=== PATIENT | female | born 1950 | race Caucasian/White ===

== ENCOUNTER 2022-08-31 08:25 | Outpatient (CLI) | payer MEDICARE, OTHER, SELFPAY ==
--- NOTE | ~2022-08-31 | NM_ITS ---
EXAMINATION: NM miguelina stress w perfusion DATE: 08/31/2022 12:08 INDICATION: Paroxysmal atrial fibrillation. TECHNIQUE: Rest images were obtained following intravenous administration of 11.3 mCi Tc99m tetrofosm in (Myoview). The patient was infused intravenously with Lexiscan (regadenoson). Then, 35.2 mCi Tc99m tetrofosmin (Myoview) was administered intravenously, and stress images were obtained. Data was seda nstructed into short axis and horizontal and vertical long axis SPECT images. Gated SPECT images were also obtained. COMPARISON: None. FINDINGS: There is no definite reversible or fixed perfusion abnormality to suggest ischemia or infar ction. There is no segmental wall motion abnormality. Left ventricular ejection fraction measures > 70%. IMPRESSION: 1. No definite ischemia or infarct. 2. Normal left ventricular ejection fraction measuring >70%. Reviewed, dictated and finalized at location A. AL SITTER
--- NOTE | 2022-08-31 08:32 | ECHO_ITS ---
Patient Info Name: Clotilde Brumfield Age: 72 years : 1950 Gender: Female Ht: 63 in Wt: 180 lbs BSA: 1.94 m2 HR: 60 bpm BP: 176 / 81 mmHg Technical Quality: Fair Exam Date: 08/31/2022 10:03 AM Exam Location: [facility] Patient Status: Outpatient Admit Date: 08/31/2022 Staff Ordering Physician: David Andino DO Radio Time Salesperson: Negin Stone RCS Attending Provider: David Andino DO Referring Physician: Sina HARRINGTON; Exam Type: CA echo doppler color flow Study Info Indications I48.0 - Paroxysmal atrial fibrillation Complete two-dimensional, color flow and Doppler transthoracic echocardiogram is performed. Summary 1. Complete two-dimensional, color flow and Doppler transthoracic echocardiogram is performed. 2. Left ventricular chamber dimension is normal. 3. Left ventricular systolic function is normal, estimated at 65-70%. 4. The left ventricular diastolic function is grade II diastolic dysfunction. 5. E/e' 12 is mildly elevated. 6. Left atrial chamber dimension is mildly enlarged. 7. There is mild aortic valve regurgitation. 8. There is mild tricuspid valve regurgitation. 9. No pulmonary hypertension, estimated pulmonary arterial systolic pressure is 39 mmHg. Left Ventricle E/e' 12 is mildly elevated. Left ventricular chamber dimension is normal. Left ventricular systolic function is normal, estimated at 65-70%. The left ventricular diastolic function is grade II diastolic dysfunction. Right Ventricle Right ventricular chamber dimension is normal. Right ventricular systolic function is normal. Left Atria Left atrial chamber dimension is mildly enlarged. Right Atria Right atrial chamber dimension is normal. Aortic Valve The aortic valve is trileaflet. There is no aortic valve stenosis. There is mild aortic valve regurgitation. Pulmonic Valve There is no pulmonic regurgitation. Mitral Valve There is no mitral valve stenosis. There is no mitral valve regurgitation. Tricuspid Valve There is mild tricuspid valve regurgitation. No pulmonary hypertension, estimated pulmonary arterial systolic pressure is 39 mmHg. Pericardium/Pleural There is no pericardial effusion. Inferior Vena Cava Normal inferior vena cava with >50% collapse upon inspiration consistent with normal right atrial pressure, 5 mmHg. Aorta The aortic root size at the sinus of Valsalva is normal. Left Ventricular Outflow Tract Name Value Normal LVOT 2D LVOT Diameter 2.0 cm LVOT Doppler LVOT Peak Gradient 6 mmHg LVOT Mean Gradient 3 mmHg LVOT VTI 26 cm LVOT VTI/AV VTI Ratio 0.7 LVOT Stroke Volume 82 ml Pulmonic Valve Name Value Normal PV Doppler PV Peak Gradient 2 mmHg Mitral Keturah
--- NOTE | 2022-08-31 08:33 | EST_ITS ---
Patient Info Name: Clotilde Brumfield Age: 72 years : 1950 Gender: Female Ht: 63 in Wt: 180 lbs BSA: 1.94 m2 HR: 58 bpm BP: 161 / 85 mmHg Heart Rhythm: Sinus Rhythm Exam Date: 08/31/2022 10:55 AM Exam Location: [facility] Stress Patient Status: Outpatient Admit Date: 08/31/2022 Staff Ordering Physician: David Andino DO Attending Provider: David Andino DO Exercise Technologist: Rubina Lee CT Exercise Physician: David Andino DO Exam Type: CA stress miguelina w NM Study Info Indications I48.0 - Paroxysmal atrial fibrillation A regadenoson stress test was performed. Summary 1. 1. Negative lexiscan stress test for ischemic ST changes by ECG criteria. 2. 2. Baseline hypertension. 3. 3. Nuclear scan to follow and will be reported separately. Please correlate with it. 4. 4. Patient informed of the above results. Protocol: Lexiscan Stress ECG Details Stage: REST Duration (min): 2 min : 2 sec HR (bpm): 59 SBP (mmHg): 161 DBP (mmHg): 85 Stage: REST Duration (min): 7 min : 0 sec HR (bpm): 62 SBP (mmHg): 161 DBP (mmHg): 85 Stage: STAGE 1 Duration (min): 0 min : 59 sec HR (bpm): 98 SBP (mmHg): 161 DBP (mmHg): 85 Stage: RECOVERY Duration (min): 1 min : 0 sec HR (bpm): 97 SBP (mmHg): 134 DBP (mmHg): 79 Stage: RECOVERY Duration (min): 2 min : 0 sec HR (bpm): 98 SBP (mmHg): 134 DBP (mmHg): 79 Stage: RECOVERY Duration (min): 3 min : 0 sec HR (bpm): 88 SBP (mmHg): 166 DBP (mmHg): 81 Stage: RECOVERY Duration (min): 3 min : 46 sec HR (bpm): 90 SBP (mmHg): 166 DBP (mmHg): 81 Rest HR: 62 bpm Peak HR: 109 bpm Rest Sys BP: 161 mmHg Peak Sys BP: 166 mmHg Max Pred HR: 149 bpm % Max Pred HR: 73 % Target HR: 127 bpm Max RPP: 18,094 bpm*mmHg Termination Reason: Completed protocol Cardiac Symptoms: Shortness of breath Total Time: 1 min : 0 sec Rest Phipps BP: 85 mmHg Peak Phipps BP: 81 mmHg Total Dose: 0.4 mg Resting ECG Sinus rhythm. Stress ECG No ST changes. Arrhythmias None. Report Signatures
== END 2022-08-31 08:26 | disposition home or self-care (01) ==
LOC: ANHCARD 08:29
PROVIDERS: PCP Physician Assistant; Visit Provider Internal Medicine Cardiovascular Disease
DX: I48.0 Paroxysmal atrial fibrillation (principal); I10 Essential (primary) hypertension; I08.2 Rheumatic disorders of both aortic and tricuspid valves
CPT/HCPCS: 78452; 93017; 93306; A9502

== ENCOUNTER 2023-02-16 19:26 | Emergency (ER) | payer MEDICARE, OTHER, SELFPAY ==
[2023-02-16 19:28] VITALS: BP 173/83; PULSE 85; RESP 16; TEMP 36.8; O2SAT 100
--- NOTE | 2023-02-16 21:29 | ED.EYEPROB ---
HPI - Eye Problem General Chief complaint: Eye Problems Stated complaint: eye problems Time Seen by Provider: 02/16/23 20:47 Source: patient Mode of arrival: ambulatory Limitations: no limitations History of Present Illness HPI Narrative: This is a 72-year-old female who presents to the ED with chief complaint of right eye irritation and drainage x1 day. Reports yellow drainage from the eye. Reports irritation. Denies any vision changes or pain. Reports an associated cough and sore throat. She has some left eye irritation starting to develop. Denies fevers or chills. Related Data Home Medications Medication Instructions Recorded Confirmed rivaroxaban 20 mg tablet (Xarelto) 20 mg PO DAILY 02/12/23 02/12/23 Allergies Allergy/AdvReac Type Severity Reaction Status Date / Time No Known Allergies Allergy Verified 02/16/23 20:44 Review of Systems Review of Systems: CONSTITUTIONAL: Denies fever, chills, or sweats. EYES: Denies visual changes, redness, or discharge. ENT: See HPI CARDIOVASCULAR: Denies chest pain, palpitations, or edema. RESPIRATORY: See HPI GASTROINTESTINAL: Denies abdominal pain, nausea, vomiting, or diarrhea. GENITOURINARY: Denies dysuria or hematuria. SKIN: Denies rash or itching. MUSCULOSKELETAL: Denies back pain, joint pain, or myalgia. NEUROLOGIC: Denies headache, numbness, dizziness, or weakness. PSYCHIATRIC: Denies anxiety or depression. 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 HEAD: Normocephalic, atraumatic. EYES: PERRLA and EOMI. right-sided purulent drainage present. Injected conjunctive a bilaterally. Bilateral eyes have with active tearing.. ENT: Nares clear, no rhinorrhea or epistaxis. Mucous membranes moist. Oropharynx without tonsillar hypertrophy exudate or other lesions. Posterior oropharynx erythema present. NECK: Supple. No adenopathy or masses. CHEST: No respiratory distress. Clear to auscultation. No wheezes rales or rhonchi HEART: Regular rate and rhythm. No murmur heard. Normal peripheral pulses. ABDOMEN: Soft, nontender, nondistended, normal active bowel sounds. MSK: Normal range of motion. No edema. SKIN: Warm, dry, no rash. NEURO: Alert and oriented x3. No focal deficits. PSYCH: Normal mood and affect. Course Vital Signs Vital signs: Vital Signs Temperature 98.3 F 02/16/23 19:28 Pulse Rate 85 02/16/23 19:28 Respiratory Rate 16 02/16/23 19:28 Blood Pressure 173/83 H 02/16/23 19:28 Pulse Oximetry 100 02/16/23 19:28 Oxygen Delivery Room Air 02/16/23 19:28 Temperature 98.3 F 02/16/23 19:28 Pulse Rate 85 02/16/23 19:28 Respiratory Rate 16 02/16/23 19:28 Blood Pressure 173/83 H 02/16/23 19:28 Pulse Oximetry 100 02/16/23 19:28 Oxygen Delivery Room Air 02/16/23 19:28 MDM - Eye Problem MDM Narrative Medical decision making narrative: This is a 72-year-old female who presents to the ED with chief complaint of eye drainage x1 day. Associated sore throat cough. Vitals are stable. Exam shows purulent drain
[2023-02-16] MEDS: ERYTHROMYCIN OPHTH OINTMENT 1 GM TUBE 1 APPLIC EACH EYE (21:35)
[2023-02-16 22:11] LABS: Strep Group A RT-PCR NOT DETECTED (Negative)
[2023-02-16 22:22] LABS: Influenza A QL RT-PCR Negative (Negative); Influenza B QL RT-PCR Negative (Negative); RSV RNA, RT-PCR Negative (Negative); SARS-CoV-2 RNA PCR Negative (Negative)
== END 2023-02-16 22:53 | disposition home or self-care (01) ==
PROVIDERS: Emergency Provider Physician Assistant; PCP Family Medicine Adolescent Medicine
DX: H10.9 Unspecified conjunctivitis (principal); B34.9 Viral infection, unspecified; Z20.822 Contact with and (suspected) exposure to COVID-19; Z90.711 Acquired absence of uterus with remaining cervical stump; Z79.01 Long term (current) use of anticoagulants
CPT/HCPCS: 87637; 87651; 99283; A9270

== ENCOUNTER 2025-03-09 16:50 | Outpatient (CLI) | payer MEDICARE, OTHER, SELFPAY ==
--- NOTE | ~2025-03-09 | US_ITS ---
Procedure: Duplex Doppler examination of the bilateral carotids. Indication: Left tinnitus Technique: Real time, color-flow and pulse wave Doppler examination of the bilateral carotids was performed. Findings: Lazcano scale ultrasonography of the right neck demonstrated no significant plaque. There was demonstrat ion of normal color-flow and Doppler waveforms within the right common, internal and external carotid arteries. The peak systolic velocities in the right common, internal and external carotid arteries w ere demonstrated to be 72 cm/sec, 87 cm/sec and 71 cm/sec respectively. The right ICA/CCA ratio was 1 .2.The proximal right internal carotid artery demonstrates 0% stenosis relative to the normal distal artery lumen diameter. Lazcano scale sonography of the left neck demonstrated no significant plaque. There was demonstration of normal color-flow and wave forms within the left common, internal and external carotid arteries. The peak systolic velocities in the left common, internal and external carotid arteries were demonstrate d to be 78cm/sec, 120 cm/sec and 81 cm/sec respectively. The left ICA/CCA ratio was 1.5. The proximal left internal carotid artery demonstrates 0% stenosis relative to the normal distal artery lumen jose meter. There was antegrade flow demonstrated in the bilateral vertebral arteries. Impression: No hemodynamically significant stenosis of the bilateral internal carotid arteries. Antegrade flow in the bilateral vertebral arteries. Note: The methodology used is an indirect measurement validated against a direct method (such as the NASCET criteria) that compares diameters at the stenosis to the distal ICA. Reviewed, dictated and finalized at [facility]. Impression: No hemodynamically significant stenosis of the bilateral internal carotid arter ies. Antegrade flow in the bilateral vertebral arteries. Note: The methodology used is an indirect measurement validated against a direct meth od (such as the NASCET criteria) that compares diameters at the stenosis to the distal ICA.
--- OUTSIDE RECORDS SUMMARY | 2025-03-09 17:25 | XMS_ITS | Referral Summary ---
Author Organization [facility] Address [address] [place] [address] Care Team Providers Care Truck Chauffeur Name Role Phone Avery Maharaj MD Primary Care Prov ider Encounters Date Type Department Care Team Description 02/15/2025 Results Follow-Up [facility] at [address] [phone] Jane Freeman NP Urine culture Urine, clean voided 02/13/2025 6:00 PM CDT - 02/13/2025 11:59 PM CDT Hospital Encounter [facility] [address] [place], [place] [id number] Acute cystitis with hematuria Discharge Disposition: Discharge to home or self care 02/13/2025 2:45 PM CDT Office Visit [facility] at [address] [phone] Miranda Trujillo PA Acute cystitis with hematuria (Primary Dx) 01/29/2025 11:30 AM CDT Office Visit [facility] [address] [address], [place] [address] Hollis Remy MD Persistent atrial fibrillation (HCC) (Primary Dx); Paroxysmal atrial fibrillation (HCC) from Last 3 Months Allergies No known active allergies Medications ipratropium (ATROVENT) 42 mcg (0.06 %) nasal spray 3 Active hydroCHLOROthia zide (HYDRODIURIL) 12.5 mg tablet Take 1 tablet (12.5 mg total) by mouth daily 3 Active rosuvastatin (CRESTOR) 20 mg tablet Take 1 tablet (20 mg total) by mouth daily 4 Active rivaroxaban (XARELTO) 20 mg tablet Take 1 tablet (20 mg total) by mouth daily with breakfast 90 tablet 3 4 07/17/20 25 Active lisinopriL (PRINIVIL,ZESTR IL) 10 mg tablet Take 1 tablet (10 mg total) by mouth daily 5 Active cephalexin (KEFLEX) 500 mg capsule Take 1 capsule (500 mg total) by mouth 2 (two) times a day for 5 days 10 capsule 5 02/19/20 Active Problems Problem Noted Date Diagnosed Date Afib 12/25/2022 Cardiac arrhythmia 11/19/2022 Assessment & Plan (07/17/2024 1:15 PM CDT): She is 1-1/2 years status post ablation for paroxysmal atrial fibrillation. During her study, she was found to have a left septal tachycardia that was inducible, but not completely ablated because of concern of proximity to the AV node. She has continued to experience palpitations, sometimes associated with tachycardia (as seen on her previous loop recorder). Additionally, she has shown me some data from her watch that does not necessarily appear to represent atrial tachycardia. As she is highly symptomatic, I offered her repeat ablation. She understands that successfully ablating her left septal tachycardia may result in AV judith impairment, and possible need for pacemaker. I asked her to consider this option carefully. For now, the patient is happy to continue with expectant management, off medical therapy. She is anticoagulated for thromboprophylaxis, which I agree with. The patient will follow-up with me in 6 months for an office visit and twelve- lead ECG. Assessment & Plan (01/03/2024 4:41 PM CDT): Persistent atrial fibrillation, 1 year post ablation. Symptoms are improved. However, the patient has intermittent, brief palpitations. Should be noted that during her EP study, the patient had inducible septal tachycardia that was only partially ablated due to proximity to the AV node. It is possible that this arrhythmia is recurrent. For now, we will continue, off antiarrhythmic drug therapy and off beta-fe therapy. If she experiences worsening arrhythmia, repeat EP study and catheter ablation can be considered - though I did tell the patient that there is some risk of AV judith injury and pacemaker placement. The patient has a [id number]-ACLc score of 3 (annualized risk of stroke 3%). I have therefore recommended continued anticoagulation for thromboprophylaxis. The patient will follow-up with me in 6 months for an office visit and twelve- lead ECG. Paroxysmal atrial fibrillation 11/19/2022 Assessment & Plan (01/29/2025 1:03 PM CDT): The patient is 2 years status post ablation for atrial fibrillation, doing well. Maintaining sinus rhythm without antiarrhythmic therapy or beta-fe therapy. Her arrhythmia has been quiet. Previously, we discussed the possibility of repeat ablation, but this does not appear to be necessary at present. Of note, during her study, she was found to have in atrial tachycardia mapped in close proximity to her AV node; thus, repeat ablation, especially of this specific arrhythmia, may involve higher risk of AV block. The patient has a RYX7DV2-JCDh score of 4. I have therefore recommended continued anticoagulation for thromboprophylaxis. The patient will follow-up with me in 12 months for an office visit and twelve- lead ECG. Assessment & Plan (07/06/2023 2:26 PM CDT): The patient is 6 months status post ablation for atrial fibrillation, doing well. Maintaining sinus rhythm without antiarrhythmic therapy. She may discontinue metoprolol at this time, per her personal preference. The patient has a CJO3MP4-EAFy score of 3. I have therefore recommended continued anticoagulation for thromboprophylaxis. The patient will follow-up with me in 6 months for an office visit and twelve- lead ECG. Assessment & Plan (11/19/2022 9:30 AM QUALITY ASSURANCE TESTER): The patient has highly symptomatic atrial arrhythmia. I had the opportunity to review the available tracings, and it appears that the patient does in fact have atrial fibrillation (at least, at times). During periods of r egularization of her tachycardia, the most likely explanation is the presence of atrial tachycardia/flutter. After considering possible options for manage, the patient is not in favor of antiarrhythmic pharmacologic therapy. This is not unreasonable, as she has been very intolerant of even low-dose metoprolol. As an alternative, we discussed catheter ablation. We discussed the rationale for atrial fibrillation ablation, including the steps involved in ablation. I think the most judicious/thorough approach would be to pursue pulmonary vein isolation, followed by EP study in order to determine if she has substrate for reentrant SVT (i.e., accessory pathway conduction, dual AV judith physiology), followed by arrhythmia induction and ablation of inducible tachycardia. I detailed the risks of the procedure, including vascular injury/hematoma, myocardial injury/perforation, stroke, myocardial infarction, pulmonary vein stenosis, thermal esophageal injury, phrenic nerve injury and . I estimated a 70-80% chance of freedom from long-term atrial arrhythmia, and the patient understands that occasionally a second procedure is necessary. The patient has a [id number]-VZDp score of 3. While she is not in favor of anticoagulation at this time, she understands that oral anticoagulation for a period of at least 2 months is a requirement following ablation. My office will make the appropriate arrangements. From: September, Allie LS, Sukhjinder JS, Shelly H, Vivek JENNA, Bert JE, Wilbert JILLIAN, Jude PT, Ventura OROZCO, [place], Tomas KT, Christina RL, Marcel WG, Gumaro PJ, Anne CM, Yajaira CW. 2014 AHA/ACC/HRS guideline for the management of patients with atrial fibrillation: a report of the [place] College [employer]/[place] Heart Association Task Force on Practice Guidelines and the Heart Rhythm Society. J Am Regina Cardiol 2014. 6.3. AF Catheter Ablation to Maintain Sinus Rhythm: Recommendations Class IIA. In patients with recurrent symptomatic paroxysmal AF, catheter ablation is a reasonable initial rhythm control strategy prior to therapeutic trials of antiarrhythmic drug therapy, after weighing risks and outcomes of drug and ablation therapy ([phone]). (Level of Evidence: B) Atrial flutter 11/19/2022 Anticoagulation management encounter 11/19/2022 Immunizations Immunization Administration Dates Next Due Influenza, Unspecified 06/13/2022 Social History Tobacco Use Types Packs/Day Years Used Date Smoking Tobacco: Never Tobacco Cessation:Counseling Given: Not Answered AUDIT-C Answer Date Recorded Q1: How often do you have a drink containing alc ohol? Monthly or less 12/25/2022 Q2: How many drinks containi ng alcohol do you have on a typical day when you are drinking? 1 or 2 12/25/2022 Q3: How often do you have si x or more drinks on one occasion? Never 12/25/2022 Personal Safety Answer Date Recorded Have you ever been in or are you currently in a harmful physical or emotional relationship or is someone making you feel afraid or unsafe? Denies 12/25/2022 Comments Unknown Sex and Gender Information Value Date Recorded Sex Assigned at Not on file Legal Sex Female 1:34 PM CDT Gender Identity Not on file Sexual Orientation Not on file Last Filed Vital Signs Vital Sign Reading Time Taken Comments Blood Pressure 115/75 02/13/2025 2:35 PM CDT Pulse 70 02/13/2025 2:35 PM CDT Temperature 36.6 C (97.8 F) 02/13/2025 2:35 PM CDT Respiratory Rate 18 02/13/2025 2:35 PM CDT Oxygen Saturation 99% 02/13/2025 2:35 PM CDT Inhaled Oxygen Concentration - - Weight 81.2 kg (179 lb) 02/13/2025 2:35 PM CDT Height 157.5 cm (5' 2.01) 02/13/2025 2:35 PM CD T Body Mass Index 32.73 02/13/2025 2:35 PM CDT Plan of Treatment Not on file Medical Devices Implanted Type Area Sheet Music Salesperson Device Identifier Shelf Expiration Date Model / Serial / Lot [employer] Vascade Mvp 6-12fr Venous Closure [id number] - [id number] - [id number] Implanted:Qty: 1 on 12/25/2022 by Hollis Remy MD at [facility] [employer] 09/13/2024 800-612C-1 [id number] / [id number] / [id number] [employer] Vascade Mvp 6-12fr Venous Closure [id number] - [id number] - [id number] Implanted:Qty: 1 on 12/25/2022 by Hollis Remy MD at [facility] [employer] 09/13/2024 800-612C-1 [id number] / [id number] / [id number] [employer] Vascade Mvp 6-12fr Venous Closure [id number] - [id number] - [id number] Implanted:Qty: 1 on 12/25/2022 by Hollis Remy MD at [facility] [employer] 09/13/2024 800-612C-1 [id number] / [id number] / [id number] [employer] Device Vascular Closure Femoral Artery Bioabsorbable Dual Method Vascade 6-7fr Collagen [id number] - [id number] - [id number] Implanted:Qty: 1 on 12/25/2022 by Hollis Remy MD at [facility] [employer] [id number] 08/01/2024 [id number] / [id number] / Procedures Procedure Name Priority Date/Time Associated Diagnosis Comments POCT URINALYSIS DIPSTICK Routine 02/13/2025 2:39 PM CDT Acute cystitis with hematuria URINE CULTURE Routine 02/13/2025 2:37 PM CDT Acute cystitis with hematuria ECG 12-LEAD Routine 01/29/2025 11:36 AM CDT Persistent atrial fibrillation (HCC) Paroxysmal atrial fibrillation (HCC) from Last 3 Months Results * (ABNORMAL) POCT urinalysis dipstick (02/13/2025 2:39 PM CDT) Color, Urine, POC Brown Clarity, ur, POC Cloudy(A) Clear Glucose, ur, POC Negative Negative Bilirubin, ur, POC Small(A) Negative Ketones, ur, POC Negative Negative Specific [place], POC 1.030 1.003 - 1.030 Blood, ur, POC Large(A) Negative pH, ur, POC 5.5 5.0 - 8.0 Protein, ur, POC 300.(A) Negative Urobilinogen, urine, POC 0.2 0.2 - 1.0 mg/dL Nitrite, ur, POC Negative Negative Leukocytes, ur, POC Trace(A) Negative Lot Number [id number] Urine 02/13/2025 2:39 PM CDT Miranda RUFFIN POINT OF CARE TEST ORDER NILAM Final Result * Urine culture Urine, clean voided (02/13/2025 2:37 PM CDT) Report Final Report: Less than 100,000 colonies/mL (clinically insignificant growth based on current clinical standards) Comment:Testing performed by : [facility], [address] [place]., [address] Organism (CLINICALLY INSIGNIFICANT GROWTH [facility] Urine, clean voided 02/13/2025 2:37 PM CDT 02/13/2025 7:47 PM CDT Narrative ALYX - 02/14/2025 9:44 PM CDT Testing performed by [facility] Microbiology Laboratory ([phone]) Miranda RUFFIN LAB MICROBIOLOGY - [facility] AL ORDERABLES Final Result [facility] [address] Department [place] [address] * ECG 12 lead (01/29/2025 11:36 AM CDT) Hollis Remy MD ECG ORDERABLES Final R esult from Last 3 Months Insurance MEDICARE [place] Advance Directives For more information, please contact: [phone] * Full Code (Latest Code Status on File) Date Activated Date Inactivated Comments 12/25/2022 5:15 PM 12/26/2022 3:34 PM Care Teams Truck Chauffeur Relationship Specialty Start Date End Date Avery Maharaj MD [address] [place] [address] PCP - General Family Medicine 06/19/21
--- OUTSIDE RECORDS SUMMARY | 2025-03-09 17:25 | XMS_ITS | Encounter Summary ---
Author Organization [facility] Healthcare Address [address] [place] [address] Care Team Providers Care Provider Network Analyst Name Role Phone Avery Maharaj MD Primary Care Prov ider Encounter Details Date Type Department Care Team (Late st Contact Info) Description 02/15/2025 Results Follow-Up [facility] at [address] [phone] Jane Freeman, RUST PROOFER [address] [place] [address] [address] [place] [address] Urine culture Urine, clean voided Social History Tobacco Use Types Packs/Day Years Used Date Smoking Tobacco: Never AUDIT-C Answer Date Recorded Q1: How often [...] on file Sexual Orientation Not on file documented as of this encounter Plan of Treatment Not on file documented as of this encounter Visit Diagnoses Not on filedocumented in this encounter Care Teams Provider Network Analyst Relationship Specialty Start Date End Date Avery Maharaj MD [address] [place] [address] PCP - General Family Medicine 06/19/21 documented as of this encounter
--- OUTSIDE RECORDS SUMMARY | 2025-03-09 17:25 | XMS_ITS | Clinical Summary ---
Author Organization [facility] Address [facility] [place] [address] Care Team Providers Care Demonstrator Electric Gas Appliances Name Role Phone Avery Maharaj MD Primary Care Prov ider Allergies No known active allergies Medications ipratropium [...] for 5 days 10 capsule 5 02/19/20 25 Active Problems Problem Noted Date Diagnosed Date [...] and pacemaker placement. The patient has a WUD3AM4-PCBx score of 3 (annualized risk of stroke [...] of AV block. The patient has a FOU1GP7-ZTYt score of 4. I have therefore recommended [...] her personal preference. The patient has a BCL0VH9-FBBv score of 3. I have therefore recommended continued anticoagulation for thromboprophylaxis. The patient will follow-up with me in 6 months for an office visit and twelve- lead ECG. Assessment & Plan (11/19/2022 9:30 AM DRAMATIC COACH): The patient has highly symptomatic atrial arrhythmia. [...] procedure is necessary. The patient has a QRO8WL5-YLWu score of 3. While she is not [...] with atrial fibrillation: a report of the [place] [employer]/[place] Heart Association Task Force on Practice Guidelines [...] Atrial flutter 11/19/2022 Anticoagulation management encounter 11/19/2022 Encounters Date Type Department Care Team Description 02/15/2025 Results Follow-Up [facility] at [address] [phone] Jane Freeman NP Urine culture Urine, clean voided 02/13/2025 6:00 PM CDT - 02/13/2025 11:59 PM CDT Hospital Encounter [address] [address] Acute cystitis with hematuria Discharge Disposition: Discharge to home or self care 02/13/2025 2:45 PM CDT Office Visit [facility] at [address] [phone] Miranda Trujillo PA Acute cystitis with hematuria (Primary Dx) 01/29/2025 11:30 AM CDT Office Visit [facility] [address] [facility] [address] [place] [phone] Hollis Remy MD Persistent atrial fibrillation (HCC) (Primary Dx); Paroxysmal atrial fibrillation (HCC) from Last 3 Months Immunizations Immunization Administration Dates Next Due Influenza, [...] on file Sexual Orientation Not on file Obstetrics History Last Filed Vital Signs Vital Sign Reading [...] 02/13/2025 2:35 PM CDT Plan of Treatment Health Maintenance Due Date Last Done Comments Breast Cancer Screening-Mammogram 1950 Colon Cancer Screening-Colonoscopy 1950 Depression Screening 1950 Hepatitis C Screening 1950 Osteoporosis Screening-Bone Density Scan 1951 DTaP/Tdap/Td Vaccine (1 - Tdap) 1962 Hepatitis B Screening 1969 Zoster Vaccine (1 of 2) 2001 Well Visit 65+ 2016 Pneumococcal vaccine 65+ (2 of 2 - PCV) 07/13/2018 07/13/2017 Fall Risk Assessment 12/26/2023 12/25/2022 Covid-19 Vaccine (3 - 2023-2 5 season) 2024 12/16/2020, 11/25/2020 Influenza Vaccine (Season Ended) 2025 06/13/2022, 06/13/2020, 07/03/2018, Additional history exists Medical Devices Implanted Type Area Telemetry Technician Device Identifier Shelf Expiration Date Model / Serial / Lot [employer] Vascade Mvp 6-12fr Venous Closure [id number] - [id number] - [id number] Implanted:Qty: 1 on 12/25/2022 by Hollis Remy MD at [facility] [employer] 09/13/2024 800-612C-1 0U / [id number] / [id number] [employer] Vascade Mvp 6-12fr Venous Closure [id number] - [id number] - [id number] Implanted:Qty: 1 on 12/25/2022 by Hollis Remy MD at [facility] [employer]agen [employer] 09/13/2024 800-612C-1 0U / [id number] / [id number] [employer] Vascade Mvp 6-12fr Venous Closure [id number] - [id number] - [id number] Implanted:Qty: 1 on 12/25/2022 by Hollis Remy MD at [facility] Collagen [employer] 09/13/2024 800-612C-1 0U / [id number] / [id number] [employer] Device Vascular Closure Femoral Artery Bioabsorbable Dual Method Vascade 6-7fr Collagen [id number] - [id number] - [id number] Implanted:Qty: 1 on 12/25/2022 by Hollis Remy MD at [facility] [employer] [id number] 08/01/2024 700-580I-0 5U / [id number] / Procedures Procedure Name Priority Date/Time [...] Negative Ketones, ur, POC Negative Negative Specific [place], POC 1.030 1.003 - 1.030 Blood, ur, POC Large(A) Negative pH, ur, POC 5.5 5.0 - 8.0 Protein, ur, POC 300.(A) Negative Urobilinogen, urine, POC 0.2 0.2 - 1.0 mg/dL Nitrite, ur, POC Negative Negative Leukocytes, ur, POC Trace(A) Negative Lot Number [id number] Urine 02/13/2025 2:39 PM CDT Miranda RUFFIN POINT OF CARE TEST ORDER NILAM Final Result * Urine culture Urine, clean voided (02/13/2025 2:37 PM CDT) Report Final Report: Less than 100,000 colonies/mL (clinically insignificant growth based on current clinical standards) Comment:Testing performed by : [facility], [address] [facility] [place]., [address] Organism (CLINICALLY INSIGNIFICANT GROWTH CERNER Urine, clean voided 02/13/2025 2:37 PM CDT 02/13/2025 7:47 PM CDT Narrative [facility] - 02/14/2025 9:44 PM CDT Testing performed by [facility] Microbiology Laboratory ([phone]) us Miranda RUFFIN LAB MICROBIOLOGY - GENER AL ORDERABLES Final Result [facility] [address] Department [place] [address] * ECG 12 lead (01/29/2025 11:36 AM CDT) us Hollis Remy MD ECG ORDERABLES Final R esult from Last 3 Months Insurance MEDICARE [facility] MEDICARE [facility] Advance Directives For more information, please contact: [phone] * Full Code (Latest Code Status on File) Date Activated Date Inactivated Comments 12/25/2022 5:15 PM 12/26/2022 3:34 PM Care Teams Demonstrator Electric Gas Appliances Relationship Specialty Start Date End Date Avery Maharaj MD [address] [place] [address] PCP - General Family Medicine 06/19/21
== END 2025-03-09 16:51 | disposition home or self-care (01) ==
PROVIDERS: PCP Family Medicine Adolescent Medicine; Visit Provider Nurse Practitioner Family
DX: R09.89 Other specified symptoms and signs involving the circulatory and respiratory systems (principal); I48.0 Paroxysmal atrial fibrillation; E78.2 Mixed hyperlipidemia; I10 Essential (primary) hypertension
CPT/HCPCS: 93880

== ENCOUNTER 2025-04-22 10:23 | Outpatient (CLI) | payer MEDICARE, OTHER, SELFPAY ==
--- NOTE | ~2025-04-22 | CT_ITS ---
EXAMINATION: CTA BRAIN/CAROTID DATE: 04/22/2025 11:17 INDICATION: Dizziness and giddiness TECHNIQUE: Computed tomographic angiography (CTA) of the head and neck was performed with 100 mL Omni paque-350 intravenous contrast. Multiplanar reconstructions and maximum intensity projection 3D-recon structions of the carotid arteries and of the intracranial arteries were created by the technologist on a separate workstation. Precontrast CT of the head was also obtained. Automated exposure control and iterative reconstruction technique were employed.The dose-length product was 1325.80 mGy-cm. COMPARISON: None. FINDINGS: Carotid arteries: Mild nonhemodynamically significant atherosclerosis along the normal caliber aortic arch and great ve ssels arising from the arch. There is no evident atherosclerotic plaque with 0% stenosis of the right and left carotid bulbs relative to normal distal artery lumen diameter (NASCET criteria). Bilateral vertebral arteries are codominant. Small coarse calcification and a few likely benign subcentimeter r ight thyroid nodules. Cervical soft tissues are otherwise unremarkable. Mild right and minimal left a pical pleural-parenchymal scarring. Head: No acute intracranial hemorrhage, acute infarction or abnormal extra axial fluid collection. Ventricl es are normal and symmetric. No mass/mass effect. No abnormally enhancing brain lesions on the postco ntrast imaging. The orbits, paranasal sinuses and mastoid air cells are normal. Intracranial arteries Vertebral arteries are codominant. Minimal nonhemodynamically significant atherosclerotic plaque at t he bilateral carotid siphons. There is no hemodynamically significant stenosis in the vertebral, basi lar and internal carotid arteries. Both A1 and P1 segments are patent. There is also a patent anterio r communicating artery. There are no aneurysms identified. Cerebral arterial arborization appears sy mmetric. IMPRESSION: 1. No evident atherosclerosis with 0% stenosis of the right and left carotid bulbs relative to normal distal artery lumen diameter (NASCET criteria). 2. Normal aging brain with no acute intracranial process or abnormally enhancing brain lesions. 3. Unremarkable cerebral CT angiogram with no hemodynamic significant stenosis, thrombosis or aneurys m. Reviewed, dictated and finalized at location A. IMPRESSION: 1. No evident atherosclerosis with 0% stenosis of the right and left carotid bu lbs relative to normal distal artery lumen diameter (NASCET criteria). 2. Normal aging brain with no acute intracranial process or abnormally enhancin g brain lesions. 3. Unremarkable cerebral CT angiogram with no hemodynamic significant stenosis, thrombosis or aneurysm.
--- OUTSIDE RECORDS SUMMARY | 2025-04-22 10:31 | XMS_ITS | Clinical Summary ---
Author Organization [facility] Address [facility] [place] [address] Care Team Providers Care Horizontal Boring Mill Set Up Operator Name Role Phone Unavailable Primary Care Provider Unavailabl e Social History Tobacco Use Types Packs/Day Years Used Date Smoking Tobacco: Never Assessed Comments Unknown Sex and Gender Information Value Date Recorded Sex Assigned at Not on file Legal Sex Female 8:41 PM CDT Gender Identity Not on file Sexual Orientation Not on file Plan of Treatment Health Maintenance Due Date Last Done Comments Colorectal Cancer Screening Colonoscopy (10 Years) 1951 Hepatitis C 1969 DTaP, Tdap and Td Vaccines ( 1 - Tdap) 1970 Mammogram Screening 1991 Pneumococcal Vaccine: 50+ Ye ars (1 of 1 - PCV) 2001 Zoster Vaccines (1 of 2) 2001 Dexa Scan (General) 2016 COVID-19 Vaccine ( - 2023-2 5 season) 2024 RSV Immunization or 60+ Years (1 - 1-dose 75+ series) 2026 Meningococcal B Vaccine Aged Out No l onger eligible based on patient's age to complete this topic Meningococcal Vaccine Aged Out No kenyon lio eligible based on patient's age to complete this topic RSV Immunizations Under 20 Months Aged Out No longer eligible based on patient's age to complete this topic
--- OUTSIDE RECORDS SUMMARY | 2025-04-22 10:31 | XMS_ITS | Referral Summary ---
Author Organization [facility] Address [address] [place] [address] Care Team Providers Care Surveillance Camera Technician Name Role Phone Avery Maharaj MD Primary Care Prov ider Encounters Date Type Department Care Team Description 02/15/2025 Results Follow-Up [facility] Con[facility]ient Care at [address] [phone] Jane Freeman NP Urine culture Urine, clean voided 02/13/2025 6:00 PM CDT - 02/13/2025 11:59 PM CDT Hospital Encounter [facility] [address] [place], [place] [id number] Acute cystitis with hematuria Discharge Disposition: Discharge to home or self care 02/13/2025 2:45 PM CDT Office Visit [facility] Medical [facility] Care at [address] [phone] Miranda Trujillo PA Acute cystitis with hematuria (Primary Dx) 01/29/2025 11:30 AM CDT Office Visit Arrhythmia Center [address] [facility] [address] [address] Hollis Remy MD Persistent atrial [...] mg total) by mouth daily 5 Active Active Problems Problem Noted Date Diagnosed Date [...] and pacemaker placement. The patient has a HYQ4AA1-IDQj score of 3 (annualized risk of stroke [...] of AV block. The patient has a OCF7XL5-SNZu score of 4. I have therefore recommended [...] her personal preference. The patient has a ULV6VP7-HIYp score of 3. I have therefore recommended continued anticoagulation for thromboprophylaxis. The patient will follow-up with me in 6 months for an office visit and twelve- lead ECG. Assessment & Plan (11/19/2022 9:30 AM BUSINESS SYSTEMS ARCHITECT): The patient has highly symptomatic atrial arrhythmia. [...] procedure is necessary. The patient has a BNH0DD2-PSSv score of 3. While she is not in favor of anticoagulation at this time, she understands that oral anticoagulation for a period of at least 2 months is a requirement following ablation. My office will make the appropriate arrangements. From: September, Allie LS, Sukhjinder JS, Shelly H, Vivek JENNA, Bert JE, Wilbert JILLIAN, Jude PT, Ventura OROZCO, Field AMAYA, Tomas KT, Christina RL, Marcel WG, Gumaro PJ, Anne CM, Yajaira CW. 2014 AHA/ACC/HRS guideline for the management of patients with atrial fibrillation: a report of the [place] [employer] Cardiology/[place] Heart Association Task Force on Practice Guidelines [...] on file Medical Devices Implanted Type Area Car Deliverer Device Identifier Shelf Expiration Date Model / Serial / Lot [employer] Vascade Mvp 6-12fr Venous Closure [id number] - [id number] - [id number] Implanted:Qty: 1 on 12/25/2022 by Hollis Remy MD at [facility] [employer] 09/13/2024 800-612C-1 0U / [id number] / [id number] [employer] Vascade Mvp 6-12fr Venous Closure [id number] - [id number] - [id number] Implanted:Qty: 1 on 12/25/2022 by Hollis Remy MD at [facility] Collagen [employer] 09/13/2024 800-612C-1 0U / [id number] / [id number] [employer] Vascade Mvp 6-12fr Venous Closure [id number] - [id number] - [id number] Implanted:Qty: 1 on 12/25/2022 by Hollis Remy MD at [facility] Collagen [employer] 09/13/2024 800-612C-1 0U / [id number] / [id number] [employer] Device Vascular Closure Femoral Artery Bioabsorbable Dual Method Vascade 6-7fr Collagen [id number] - [id number] - [id number] Implanted:Qty: 1 on 12/25/2022 by Hollis Remy MD at [facility] [employer] [id number] 08/01/2024 700-580I-0 5U / [id number] / Procedures Procedure Name Priority Date/Time [...] Negative Ketones, ur, POC Negative Negative Specific [place], POC 1.030 1.003 - 1.030 Blood, ur, POC Large(A) Negative pH, ur, POC 5.5 5.0 - 8.0 Protein, ur, POC 300.(A) Negative Urobilinogen, urine, POC 0.2 0.2 - 1.0 mg/dL Nitrite, ur, POC Negative Negative Leukocytes, ur, POC Trace(A) Negative Lot Number [id number] Urine 02/13/2025 2:39 PM CDT Miranda RUFFIN POINT OF CARE TEST ORDER NILAM Final Result * Urine culture Urine, clean voided (02/13/2025 2:37 PM CDT) Report Final Report: Less than 100,000 colonies/mL (clinically insignificant growth based on current clinical standards) Comment:Testing performed by : [facility], [address] [place]., [address] Organism (CLINICALLY INSIGNIFICANT GROWTH [facility] Urine, clean voided 02/13/2025 2:37 PM CDT 02/13/2025 7:47 PM CDT Narrative ALYX - 02/14/2025 9:44 PM CDT Testing performed by [facility] Microbiology Laboratory ([phone]) Miranda RUFFIN LAB MICROBIOLOGY - [place] AL ORDERABLES Final Result [facility] [address] [facility] Department of Laboratories [place], [place] [id number] * ECG 12 lead (01/29/2025 11:36 AM CDT) Hollis Remy MD ECG ORDERABLES Final R esult from Last 3 Months Insurance MEDICARE [facility] MEDICARE [facility] Advance Directives For more information, please contact: [phone] * Full Code (Latest Code Status on File) Date Activated Date Inactivated Comments 12/25/2022 5:15 PM 12/26/2022 3:34 PM Care Teams Surveillance Camera Technician Relationship Specialty Start Date End Date Avery Maharaj MD [address] [place] [address] PCP - General Family Medicine 06/19/21
--- OUTSIDE RECORDS SUMMARY | 2025-04-22 10:31 | XMS_ITS | Clinical Summary ---
Author Organization [facility] Address [address] [place] [phone] Care Team Providers Care Contract Attorney Name Role Phone Avery Maharaj MD Primary [...] and pacemaker placement. The patient has a ZHN5GI0-WSZw score of 3 (annualized risk of stroke [...] of AV block. The patient has a HLX9CA7-QSGi score of 4. I have therefore recommended [...] her personal preference. The patient has a JWQ9SS2-HCGn score of 3. I have therefore recommended continued anticoagulation for thromboprophylaxis. The patient will follow-up with me in 6 months for an office visit and twelve- lead ECG. Assessment & Plan (11/19/2022 9:30 AM COOLING ROOM ATTENDANT): The patient has highly symptomatic atrial arrhythmia. [...] procedure is necessary. The patient has a NNQ7BQ0-WWJb score of 3. While she is not in favor of anticoagulation at this time, she understands that oral anticoagulation for a period of at least 2 months is a requirement following ablation. My office will make the appropriate arrangements. From: September CT, Allie LS, Sukhjinder JS, Shelly H, Vivek JENNA, Bert JE, Wilbert JILLIAN, Jude PT, [place] OROZCO, [place], Tomas KT, Christina RL, Marcel WG, Gumaro PJ, Anne CM, Yajaira CW. 2014 AHA/ACC/HRS guideline for the management of patients with atrial fibrillation: a report of the [place] College of Cardiology/[place] Heart Association Task Force on Practice Guidelines [...] Department Care Team Description 02/15/2025 Results Follow-Up [facility] at [address] [phone] Jane Freeman NP Urine culture Urine, clean voided 02/13/2025 6:00 PM CDT - 02/13/2025 11:59 PM CDT Hospital Encounter [address] [address] Acute cystitis with hematuria Discharge Disposition: Discharge to home or self care 02/13/2025 2:45 PM CDT Office Visit [facility] at [address] [phone] Miranda Trujillo PA Acute cystitis with hematuria (Primary Dx) 01/29/2025 11:30 AM CDT Office Visit [facility]ia Center [address] [facility] [address] [place] [phone] Hollis Remy MD Persistent atrial fibrillation [...] 5 season) 2024 12/16/2020, 11/25/2020 Influenza Vaccine (#1) 2025 , 06/13/2020, 07/03/2018, Additional history exists Medical Devices Implanted Type Area Casting Machine Operator Helper Device Identifier Shelf Expiration Date Model / Serial / Lot [employer] Vascade Mvp 6-12fr Venous Closure [id number] - [id number] - [id number] Implanted:Qty: 1 on 12/25/2022 by Hollis Remy MD at [facility] [employer] 09/13/2024 800-612C-1 0U / [id number] / [id number] [employer] Vascade Mvp 6-12fr Venous Closure [id number] - [id number] - [id number] Implanted:Qty: 1 on 12/25/2022 by Hollis Remy MD at [facility] [employer] 09/13/2024 800-612C-1 0U / [id number] / [id number] [employer] Vascade Mvp 6-12fr Venous Closure [id number] - [id number] - [id number] Implanted:Qty: 1 on 12/25/2022 by Hollis Remy MD at [facility] Collagen [employer] 09/13/2024 800-612C-1 0U / [id number] / [id number] [employer] Device Vascular Closure Femoral Artery Bioabsorbable Dual Method Vascade 6-7fr Collagen [id number] - [id number] - [id number] Implanted:Qty: 1 on 12/25/2022 by Hollis Remy MD at [facility] [employer] [id number] 08/01/2024 700-580I-0 5U / [id number] / Procedures Procedure Name Priority Date/Time [...] Negative Ketones, ur, POC Negative Negative Specific [place], POC 1.030 1.003 - 1.030 Blood, ur, POC Large(A) Negative pH, ur, POC 5.5 5.0 - 8.0 Protein, ur, POC 300.(A) Negative Urobilinogen, urine, POC 0.2 0.2 - 1.0 mg/dL Nitrite, ur, POC Negative Negative Leukocytes, ur, POC Trace(A) Negative Lot Number [id number] Urine 02/13/2025 2:39 PM CDT Miranda RUFFIN POINT OF CARE TEST ORDER NILAM Final Result * Urine culture Urine, clean voided (02/13/2025 2:37 PM CDT) Report Final Report: Less than 100,000 colonies/mL (clinically insignificant growth based on current clinical standards) Comment:Testing performed by : [facility], [address] [facility] [place]., [address] Organism (CLINICALLY INSIGNIFICANT GROWTH [facility] Urine, clean voided 02/13/2025 2:37 PM CDT 02/13/2025 7:47 PM CDT Narrative ALYX - 02/14/2025 9:44 PM CDT Testing performed by [facility] Microbiology Laboratory ([phone]) us Miranda RUFFIN LAB MICROBIOLOGY - GENER AL ORDERABLES Final Result [facility] [address] Department [place] [address] * ECG 12 lead (01/29/2025 11:36 AM CDT) us Hollis Remy MD ECG ORDERABLES Final R esult from Last 3 Months Insurance MEDICARE [facility] MEDICARE [facility] Advance Directives For more information, please contact: [phone] * Full Code (Latest Code Status on File) Date Activated Date Inactivated Comments 12/25/2022 5:15 PM 12/26/2022 3:34 PM Care Teams Contract Attorney Relationship Specialty Start Date End Date Avery Maharaj MD [address] [place] [address] PCP - General Family Medicine 06/19/21
[2025-04-22 10:57] LABS: Estimated Glomerular Filt Rate 44
== END 2025-04-22 10:24 | disposition home or self-care (01) ==
PROVIDERS: PCP Family Medicine Adolescent Medicine; Visit Provider Otolaryngology
DX: R42 Dizziness and giddiness (principal); R53.83 Other fatigue; H93.A2 Pulsatile tinnitus, left ear
CPT/HCPCS: 70496; 70498; Q9967

== ENCOUNTER 2025-05-04 08:28 | Outpatient (CLI) | payer MEDICARE, OTHER, SELFPAY ==
--- NOTE | ~2025-05-04 | US_ITS ---
Renal-Bladder ultrasound Clinical History: Chronic kidney disease Technique: Real-time sonographic imaging of the kidneys and urinary bladder was performed. Findings: The right kidney measures 8.0 cm in length and the left kidney measures 9.8 cm. There is no hydronephrosis or renal calculus identified. Renal cortical echogenicity is within normal limits. Ri ght renal cyst noted. The urinary bladder is moderately distended at the time of this exam. No intraluminal echoes are iden tified. No abnormal wall thickening is seen. Impression: No significant abnormality seen. Reviewed, dictated and finalized at location M. Impression: No significant abnormality seen.
--- OUTSIDE RECORDS SUMMARY | 2025-05-04 08:33 | XMS_ITS | Clinical Summary ---
Author Organization [facility] Address [facility] [place] [address] Care Team Providers Care Field Seismologist Name Role Phone Unavailable Primary Care Provider [...] 2001 Dexa Scan (General) 2016 COVID-19 Vaccine (2023-2 5 season) 2024 RSV Immunization or 60+ [...]
--- OUTSIDE RECORDS SUMMARY | 2025-05-04 08:33 | XMS_ITS | Referral Summary ---
Author Organization [facility] Address [address] [place] [address] Care Team Providers Care Debarker Operator Name Role Phone Avery Maharaj MD Primary Care Prov ider Encounters Date Type Department Care Team Description 02/15/2025 Results Follow-Up [facility]ient Care at [address] [phone] Jane Freeman NP Urine culture Urine, clean voided 02/13/2025 6:00 PM CDT - 02/13/2025 11:59 PM CDT Hospital Encounter [address] [address] Acute cystitis with hematuria Discharge Disposition: Discharge to home or self care 02/13/2025 2:45 PM CDT Office Visit [facility] Medical [facility] Care at [address] [phone] Miranda Trujillo PA Acute cystitis with hematuria (Primary Dx) from Last 3 Months Allergies No known [...] and pacemaker placement. The patient has a XYJ6CG1-CXNa score of 3 (annualized risk of stroke [...] of AV block. The patient has a FRK4QO2-MHFr score of 4. I have therefore recommended [...] her personal preference. The patient has a OJY0JJ3-TZJx score of 3. I have therefore recommended continued anticoagulation for thromboprophylaxis. The patient will follow-up with me in 6 months for an office visit and twelve- lead ECG. Assessment & Plan (11/19/2022 9:30 AM CLINICAL EDUCATION SPECIALIST): The patient has highly symptomatic atrial arrhythmia. [...] procedure is necessary. The patient has a GAV9PM8-GRJm score of 3. While she is not [...] with atrial fibrillation: a report of the [place] [employer]iology/[place] Heart Association Task Force on Practice Guidelines [...] on file Medical Devices Implanted Type Area Rehabilitation Liaison Device Identifier Shelf Expiration Date Model / Serial / Lot [employer] Vascade Mvp 6-12fr Venous Closure [id number] - [id number] - [id number] Implanted:Qty: 1 on 12/25/2022 by Hollis Remy MD at [facility] [employer] 09/13/2024 800-612C-1 0U / [id number] / [id number] [employer] Vascade Mvp 6-12fr Venous Closure [id number] - [id number] - [id number] Implanted:Qty: 1 on 12/25/2022 by Hollis Remy MD at [facility] [employer] 09/13/2024 800-612C-1 0U / [id number] / [id number] [employer] Vascade Mvp 6-12fr Venous Closure [id number] - [id number] - [id number] Implanted:Qty: 1 on 12/25/2022 by Hollis Remy MD at [facility] [employer] 09/13/2024 800-612C-1 0U / [id number] / [id number] [employer] Device Vascular Closure Femoral Artery Bioabsorbable Dual Method Vascade 6-7fr [employer]agen [id number] - [id number] - [id number] Implanted:Qty: 1 on 12/25/2022 by Hollis Remy MD at [facility] [employer] [id number] 08/01/2024 700-580I-0 5U / [id number] / Procedures Procedure Name Priority Date/Time Associated Diagnosis Comments POCT URINALYSIS DIPSTICK Routine 02/13/2025 2:39 PM CDT Acute cystitis with hematuria URINE CULTURE Routine 02/13/2025 2:37 PM CDT Acute cystitis with hematuria from Last 3 Months Results * (ABNORMAL) POCT urinalysis dipstick (02/13/2025 2:39 PM CDT) Color, Urine, POC Brown Clarity, ur, POC Cloudy(A) Clear Glucose, ur, POC Negative Negative Bilirubin, ur, POC Small(A) Negative Ketones, ur, POC Negative Negative Specific [place], POC 1.030 1.003 - 1.030 Blood, ur, POC Large(A) Negative pH, ur, POC 5.5 5.0 - 8.0 Protein, ur, POC 300.(A) Negative Urobilinogen, urine, POC 0.2 0.2 - 1.0 mg/dL Nitrite, ur, POC Negative Negative Leukocytes, ur, POC Trace(A) Negative Lot Number [id number] Urine 02/13/2025 2:39 PM CDT Miranda RUFFIN POINT OF CARE TEST ORDER NILAM Final Result * Urine culture Urine, clean voided (02/13/2025 2:37 PM CDT) Report Final Report: Less than 100,000 colonies/mL (clinically insignificant growth based on current clinical standards) Comment:Testing performed by : [facility], [address] [place]., [address] Organism (CLINICALLY INSIGNIFICANT GROWTH ALYX Urine, clean voided 02/13/2025 2:37 PM CDT 02/13/2025 7:47 PM CDT Narrative ALYX SPRING - 02/14/2025 9:44 PM CDT Testing performed by [facility] Microbiology Laboratory ([phone]) Miranda RUFFIN LAB MICROBIOLOGY - GENER AL ORDERABLES Final Result ALYX [id number] Department [place] [address] from Last 3 Months Insurance MEDICARE [facility] MEDICARE [employer]RIGUE[employer] Advance Directives For more information, please contact: [phone] * Full Code (Latest Code Status on File) Date Activated Date Inactivated Comments 12/25/2022 5:15 PM 12/26/2022 3:34 PM Care Teams Debarker Operator Relationship Specialty Start Date End Date Avery Maharaj MD [address] [place] [address] PCP - General Family Medicine 06/19/21
--- OUTSIDE RECORDS SUMMARY | 2025-05-04 08:33 | XMS_ITS | Clinical Summary ---
Author Organization [facility] Address [facility] [place] [address] Care Team Providers Care Network Operations Center Engineer Name Role Phone Avery Maharaj MD Primary [...] and pacemaker placement. The patient has a TBY0TY0-OZKc score of 3 (annualized risk of stroke [...] of AV block. The patient has a CRM2NF5-GHKp score of 4. I have therefore recommended [...] her personal preference. The patient has a BGP6EY8-ZGNk score of 3. I have therefore recommended continued anticoagulation for thromboprophylaxis. The patient will follow-up with me in 6 months for an office visit and twelve- lead ECG. Assessment & Plan (11/19/2022 9:30 AM BI SOLUTIONS ARCHITECT): The patient has highly symptomatic atrial [...] procedure is necessary. The patient has a OHW5XX7-AZMd score of 3. While she is not [...] with atrial fibrillation: a report of the [place] College of Cardiology/[place] Heart Association Task Force on Practice Guidelines [...] Department Care Team Description 02/15/2025 Results Follow-Up [facility]ient Care at [address] [phone] Jane Freeman NP Urine culture Urine, clean voided 02/13/2025 6:00 PM CDT - 02/13/2025 11:59 PM CDT Hospital Encounter [address] [address] Acute cystitis with hematuria Discharge Disposition: Discharge to home or self care 02/13/2025 2:45 PM CDT Office Visit [facility] Medical [facility] Care at [address] [phone] Miranda Trujillo PA Acute cystitis with hematuria (Primary Dx) from Last 3 Months Immunizations Immunization Administration [...] 2024 12/16/2020, 11/25/2020 Influenza Vaccine (#1) 2025 2, 06/13/2020, 07/03/2018, Additional history exists Medical Devices Implanted Type Area Supervisor Keymodule Assembly Device Identifier Shelf Expiration Date Model / Serial / Lot [employer] Vascade Mvp 6-12fr Venous Closure [id number] - [id number] - [id number] Implanted:Qty: 1 on 12/25/2022 by Hollis Remy MD at [facility] [employer] 09/13/2024 800-612C-1 0U / [id number] / [id number] [employer] Vascade Mvp 6-12fr Venous Closure [id number] - [id number] - [id number] Implanted:Qty: 1 on 12/25/2022 by Hollis Remy MD at [facility] [employer] 09/13/2024 800-612C-1 0U / [id number] / [id number] [employer] Vascade Mvp 6-12fr Venous Closure [id number] - [id number] - [id number] Implanted:Qty: 1 on 12/25/2022 by Hollis Remy MD at [facility] [employer] 09/13/2024 800-612C-1 0U / [id number] / [id number] [employer] Device Vascular Closure Femoral Artery Bioabsorbable Dual Method Vascade 6-7fr Collagen [id number] - [id number] - [id number] Implanted:Qty: 1 on 12/25/2022 by Hollis Remy MD at [facility] [employer] [id number] 08/01/2024 700-580I-0 5U / [id number] / Procedures Procedure Name Priority Date/Time [...] Negative Ketones, ur, POC Negative Negative Specific [place], POC 1.030 1.003 - 1.030 Blood, ur, POC Large(A) Negative pH, ur, POC 5.5 5.0 - 8.0 Protein, ur, POC 300.(A) Negative Urobilinogen, urine, POC 0.2 0.2 - 1.0 mg/dL Nitrite, ur, POC Negative Negative Leukocytes, ur, POC Trace(A) Negative Lot Number [id number] Urine 02/13/2025 2:39 PM CDT Miranda RUFFIN POINT OF CARE TEST ORDER NILAM Final Result * Urine culture Urine, clean voided (02/13/2025 2:37 PM CDT) Report Final Report: Less than 100,000 colonies/mL (clinically insignificant growth based on current clinical standards) Comment:Testing performed by : [facility], [address] [place]., [address] Organism (CLINICALLY INSIGNIFICANT GROWTH ALYX Urine, clean voided 02/13/2025 2:37 PM CDT 02/13/2025 7:47 PM CDT Narrative ALYX - 02/14/2025 9:44 PM CDT Testing performed by [facility] Microbiology Laboratory ([phone]) Miranda RUFFIN LAB MICROBIOLOGY - GENER AL ORDERABLES Final Result ALYX [id number] Department [place] [address] from Last 3 Months Insurance MEDICARE [facility] MEDICARE [employer] [place] Advance Directives For more information, please contact: [phone] * Full Code (Latest Code Status on File) Date Activated Date Inactivated Comments 12/25/2022 5:15 PM 12/26/2022 3:34 PM Care Teams Network Operations Center Engineer Relationship Specialty Start Date End Date Avery Maharaj MD [address] [place] [address] PCP - General Family Medicine 06/19/21
== END 2025-05-04 08:29 | disposition home or self-care (01) ==
PROVIDERS: PCP Family Medicine Adolescent Medicine; Visit Provider Internal Medicine Nephrology
DX: I12.9 Hypertensive chronic kidney disease with stage 1 through stage 4 chronic kidney disease, or unspecified chronic kidney disease (principal); N18.31 Chronic kidney disease, stage 3a; R31.0 Gross hematuria
CPT/HCPCS: 76775

== ENCOUNTER 2025-06-15 12:57 | Outpatient (RCR) | payer MEDICARE, OTHER, SELFPAY ==
[2025-06-15 13:53] VITALS: BMI 32.6
--- NOTE | 2025-06-15 14:05 | PCDIET ---
Nutrition consult completed. DEVORA
== END 2025-08-30 10:55 | disposition home or self-care (01) ==
LOC: ANHDMC 12:57
PROVIDERS: PCP Nurse Practitioner Family; Visit Provider Family Medicine Adolescent Medicine
DX: E66.9 Obesity, unspecified (principal); E78.2 Mixed hyperlipidemia; I12.9 Hypertensive chronic kidney disease with stage 1 through stage 4 chronic kidney disease, or unspecified chronic kidney disease; N18.31 Chronic kidney disease, stage 3a; R14.0 Abdominal distension (gaseous); Z71.3 Dietary counseling and surveillance
CPT/HCPCS: 97802

== ENCOUNTER 2025-06-26 09:45 | Emergency (ER) | payer MEDICARE, OTHER, SELFPAY ==
[2025-06-26 09:55] VITALS: BP 125/67; PULSE 69; RESP 16; TEMP 36.2; O2SAT 100
--- NOTE | 2025-06-26 09:57 | ED.FEMALEGU ---
HPI - Female Genitourinary General Chief complaint: Urogenital-Female Stated complaint: Uti Symptoms patient presents to the [facility] Care with complaints of burning with urination, urinary urgency, and urinary frequency that began over the last day. Occasional UTIs noted. Denies frequent or hard to treat UTIs. Denies fever, chills, body aches abdominal pain, nausea, vomiting, diarrhea, blood in urine, or vaginal symptoms. Related Data Home Medications ?Medication ?Instructions ?Recorded ?Confirmed ?Last Taken ?Type rivaroxaban 20 mg tablet (Xarelto) 20 mg PO DAILY 02/12/23 06/08/25 Unknown History Allergies Allergy/AdvReac Type Severity Reaction Status Date / Time No Known Allergies Allergy Verified 06/08/25 07:20 Review of Systems Constitutional: Constitutional: Reports as per HPI, Denies chills and Denies fatigue Eyes: Eyes: Reports no additional eye complaints ENT: Reports system reviewed and no additional complaints, except as documented Cardiovascular: Cardiovascular: Reports no additional cardiovascular complaints Respiratory: Respiratory: Reports no additional respiratory complaints Gastrointestinal: Gastrointestinal: Reports as per HPI, Denies abdominal pain, Denies heartburn, Denies diarrhea, Denies nausea and Denies vomiting Genitourinary: Genitourinary: Reports as per HPI, Denies hematuria, Reports nocturia, Reports dysuria, Denies urinary incontinence and Denies vaginal discharge Musculoskeletal: Musculoskeletal: Reports no additional musculoskeletal complaints Integumentary/Breasts: Skin/Breast: Reports system reviewed and no additional complaints, except as docu Neurologic: Reports as per HPI Psychiatric: Psychiatric: Reports no additional psychiatric complaints Endocrine: Endocrine: Reports no additional endocrine complaints Hematologic/Lymphatic: Hematologic/Lymphatic: Reports no additional hematologic/lymphatic complaints Allergic/Immunologic: Allergic/Immunologic: Reports no additional allergic/immunologic complaints [facility] Past Medical History Medical History (Updated 06/26/25 @ 10:04 by Paola Estrella, LAYOUT TECHNICIAN-C) Pulsatile tinnitus of left ear BMI 32.0-32.9,adult PSVT (paroxysmal supraventricular tachycardia) Paroxysmal A-fib Surgical History Surgical History H/O cardiac radiofrequency ablation 12/2022 Dr Remy Narcotics Agent [place] 08/2023 Dr Remy History of partial hysterectomy Family History Family History Mother Depression Hypertension Father Depression Malignant neoplasm of prostate Sibling No problems noted. 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 Gender identity (if verbalized by the patient): Female Spiritual care concerns: No Agree to blood products: Yes Exam Const: General: healthy appearing and no acute distress Nutritional Appearance: well nourished Orientation/consciousness: patient oriented x3 Limitations: no limitations Resp: Effort & Inspection: normal respiratory effort Auscultation: clear to auscultation bilaterally Cardio: Rate: regular rate Rhythm: regular rhythm GI: Inspection: non-distended GI Palp: Yes Soft to palpation, No Tenderness to palpation present (GI), No Guarding due to palpation present (GI) and No Rigid due to palpation Auscultation: normal bowel sounds : General: Yes bladder normal to palpation and Yes no CVA tenderness Back/Spine/Pelvis: Back: no CVA tenderness Skin: General skin exam: normal color Rashes: no rashes Wounds: no wounds Neuro: General: patient oriented x3 Speech: normal speech Gait exam (Neuro): Normal gait present Psych: Appearance: grossly normal Mental Status: mental status grossly normal Affect: normal affect Attitude: cooperative Course Course Level of Care: Express Care Visit Vital Signs Vital signs: Vital Signs Temperature 97.1 F L 06/26/25 09:55 Pulse Rate 69 06/26/25 09:55 Respiratory Rate 16 06/26/25 09:55 Blood Pressure 125/67 06/26/25 09:55 Pulse Oximetry 100 06/26/25 09:55 Temperature 97.1 F L 06/26/25 09:55 Pulse Rate 69 06/26/25 09:55 Respiratory Rate 16 06/26/25 09:55 Blood Pressure 125/67 06/26/25 09:55 Pulse Oximetry 100 06/26/25 09:55 MDM - Female Genitourinary MDM Narrative Medical decision making narrative: The patient was evaluated by myself in the [facility] care. History is obtained from patient who is an independent historian and physical exam was performed. Available medical records were reviewed at this time. Exam findings show no acute concerns or changes; patient is non-toxic appearing and is in no distress. Patient is appropriate for outpatient treatment and follow-up. I have evaluated and discussed social determinants of health with the patient that could potentially impact subsequent diagnosis and treatment plans. Differential diagnosis and treatment plan were discussed with the patient. Patient agrees with discussion and after shared medical decision making agrees with plan of care. All questions were answered to the patient's satisfaction. Differential Diagnosis Differential diagnosis: Likely urinary tract infection, bacterial vaginosis, cervicitis, vaginitis, cystitis and dysmenorrhea Medical Records Attestation: I reviewed the patient's medical records. Lab Data Attestation: I reviewed the patient's lab results. Discharge Plan Discharge Clinical Impression: Cystitis Patient Disposition: Home Condition: Stable Instructions: Antibiotic Form, Urinary Tract Infection in Women (ED), Dysuria (ED) Additional Instructions: We will send a urine culture off to the lab; if the culture identifies an organism that the prescribed antibiotic will not treat, you will receive a phone call from an urgent care staff member and an appropriate antibiotic will be prescribed. -Your symptoms should begin to improve within a day of starting antibiotics. But you should finish all the antibiotic pills you get. Otherwise your infection might come back. -Also recommend: drink more fluid. It might help flush out germs, and it does no harm -Tylenol/ibuprofen as needed for pain -Follow-up with your primary care provider for urine recheck OR if your symptoms persist, change or worsen significantly before you can contact your personal physician then please, without delay, go to the emergency department for further evaluation. Patient Language: Slovak Prescriptions: New cephalexin 500 mg capsule 500 mg PO Q12H Qty: 14 0RF No Action Xarelto 20 mg tablet 20 mg PO DAILY Rx Instructions: must administer with evening meal famotidine 20 mg tablet 20 mg PO DAILY PRN (Reason: acid reflux) Qty: 90 0RF hydrochlorothiazide 12.5 mg tablet See Rx Instructions .ROUTE .COMPLEX Qty: 90 1RF Dose Instruction: Take 1 tablet by mouth once daily Rx Instructions: Take 1 tablet by mouth once daily lisinopril 5 mg tablet 5 mg PO DAILY Qty: 90 1RF rosuvastatin 20 mg tablet See Rx Instructions .ROUTE .COMPLEX Qty: 90 1RF Dose Instruction: Take 1 tablet by mouth once daily Rx Instructions: Take 1 tablet by mouth once daily ipratropium bromide 42 mcg (0.06 %) spray,non-aerosol See Rx Instructions .ROUTE .COMPLEX Qty: 45 3RF Dose Instruction: USE 2 SPRAYS INTO EACH NOSTRIL 3 TO 4 TIMES DAILY NEEDED Rx Instructions: USE 2 SPRAYS INTO EACH NOSTRIL 3 TO 4 TIMES DAILY NEEDED Follow-up/Referrals: PHYSICIAN,TIE PRESSER [Primary Care Provider, Internal Medicine] Time of Disposition: 10:05
[2025-06-26 10:03] LABS: EDUAAPPEAR Cloudy; EDUABILI Negative (Negative); EDUABLOOD 1+ (Negative); EDUACOLOR1 Yellow; EDUAGLUCOSE Negative (Negative); EDUAKETONE Trace (Negative); EDUALEUKO 2+ (Negative); EDUANITRATE Negative (Negative); EDUAPH 5.5; EDUAPROTEIN Trace (Negative); EDUASPGRAVITY 1.025; EDUAUROBILI 0.2
== END 2025-06-26 10:06 | disposition home or self-care (01) ==
PROVIDERS: Emergency Provider Nurse Practitioner Family
DX: N30.90 Cystitis, unspecified without hematuria (principal); I48.91 Unspecified atrial fibrillation; Z90.711 Acquired absence of uterus with remaining cervical stump; Z79.01 Long term (current) use of anticoagulants
CPT/HCPCS: 81003; 87086; 87186; 99213; G0463